=== PATIENT | female | born 1950 | race Caucasian/White ===

== ENCOUNTER 2018-01-18 05:21 | Inpatient (IN) | payer MEDICARE, OTHER, MEDICAID ==
[2018-01-18 05:44] LABS: ADD MAN DIFF? NO
[2018-01-18] MEDS: SOD CHLORIDE 0.9% 500 ML IV (05:44)
[2018-01-18] MEDS: DILTIAZEM 25 MG INJ IV (05:45)
[2018-01-18 05:49] LABS: WHITE BLOOD COUNT 7.4 10^3/ul (4.8-10.8)
[2018-01-18 05:49] LABS: BASOPHILS % 0.5 % (0.0-2.0); EOSINOPHILS # 0.1 10^3/ul (0.0-0.5); EOSINOPHILS % 1.8 % (0.0-7.0); HEMATOCRIT 37.6 % (37.0-47.0); HEMOGLOBIN 12.3 g/dl (12.0-16.0); LYMPHOCYTES % 40.6 % (15.0-51.0); MEAN CORPUSCULAR HEMOGLOBIN 29.4 pg (29.0-33.0); MEAN CORPUSCULAR HGB CONC 32.7 g/dl (32.0-37.0); MEAN CORPUSCULAR VOLUME 89.7 fl (82.0-101.0); MEAN PLATELET VOLUME 10.3 fl (7.4-10.4); MONOCYTE # 0.8 10^3/ul (0.3-0.9); MONOCYTES % 10.5 % (0.0-11.0); NEUTROPHIL # 3.4 10^3/ul (1.6-7.5); NEUTROPHILS % 46.3 % (39.0-77.0); PLATELET COUNT 223 10^3/UL (140-415); RED BLOOD COUNT 4.19 10^6/ul (4.20-5.40); RED CELL DISTRIBUTION WIDTH 12.8 % (11.5-14.5)
[2018-01-18] MEDS ORDERED: ACETAMINOPHEN 325 MG TAB PO (06:30)
[2018-01-18] MEDS ORDERED: BISACODYL (EC) 5 MG TAB PO (06:30)
[2018-01-18] MEDS ORDERED: ONDANSETRON 4 MG INJ IV (06:30)
[2018-01-18] MEDS ORDERED: DOCUSATE SODIUM 100 MG CAP PO (06:30)
[2018-01-18] MEDS ORDERED: NACL 0.9% 3 ML SYG IV (06:30)
[2018-01-18] MEDS ORDERED: morphine 2 MG INJ IV (06:30)
[2018-01-18 06:31] LABS: ANION GAP 9 (8-16); BLOOD UREA NITROGEN 21 mg/dl (7-20); CALCIUM 8.3 mg/dl (8.4-10.2); CARBON DIOXIDE 27 mmol/L (21-31); CHLORIDE 106 mmol/L (97-110); CREATININE 0.95 mg/dl (0.44-1.00); GLUCOSE 129 mg/dl (70-220); POTASSIUM 3.9 mmol/L (3.5-5.1); SODIUM 138 mmol/L (135-144)
[2018-01-18] MEDS: ASPIRIN 325 MG TAB PO (06:32)
[2018-01-18 06:43] LABS: B-TYPE NATRIURETIC PEPTIDE 443 PG/ML (0-125); TROPONIN-I < 0.012 ng/ml (0.000-0.120)
[2018-01-18] MEDS: DILTIAZEM-D5W 125MG/125ML DRIP 125 ML IV (06:50)
[2018-01-18 07:12] LABS: CHOLESTEROL 157 mg/dl (100-200)
[2018-01-18 07:12] LABS: CHOL/HDL RATIO 2.8 RATIO; HDL CHOLESTEROL 55 mg/dl (35-98); LDL CHOLESTEROL,CALCULATED 84 mg/dl; TRIGLYCERIDES 89 mg/dl (0-149)
[2018-01-18 07:22] LABS: HEMOGLOBIN A1C 5.5 % (0-5.9)
[2018-01-18 07:39] LABS: AMPHETAMINE/METHAMPHETAMINE Negative (NEGATIVE); BARBITURATES Negative (NEGATIVE); BENZODIAZEPINES Negative (NEGATIVE); CANNABINOIDS Negative (NEGATIVE); COCAINE Negative (NEGATIVE); OPIATES Negative (NEGATIVE)
[2018-01-18] MEDS: ASPIRIN 81 MG TAB PO ×2 (08:34→08:36)
[2018-01-18 09:00] LABS: INR 0.89; PROTIME 12.1 Sec (11.9-14.9); PT RATIO 0.9
[2018-01-18 09:01] LABS: PARTIAL THROMBOPLASTIN TIME 26.4 Sec (25.0-35.0)
[2018-01-18] MEDS: ASPIRIN (EC) 81 MG TAB PO (09:08)
[2018-01-18] MEDS: METOPROLOL 25 MG TAB PO ×2 (10:30→20:25)
[2018-01-18 11:53] LABS: CREATINE KINASE 97 IU/L (23-200)
[2018-01-18 12:07] LABS: CK INDEX 1.9; TROPONIN-I < 0.012 ng/ml (0.000-0.120)
[2018-01-18] MEDS ORDERED: CEFTRIAXONE 1 GM/50 ML (PMX) 50 ML IVPB (16:30)
[2018-01-18] MEDS ORDERED: hydrALAzine 20 MG INJ IV (16:30)
[2018-01-18] MEDS ORDERED: ACETAMINOPHEN 650 MG SUPP PR (16:30)
[2018-01-18] MEDS ORDERED: DEXTROSE 5%-0.9% NACL 1,000 ML IV (16:30)
[2018-01-18 17:12] LABS: CREATINE KINASE 74 IU/L (23-200)
[2018-01-18 17:21] LABS: CK INDEX 2.3; CK-MB 1.69 ng/ml (0.0-2.4); TROPONIN-I < 0.012 ng/ml (0.000-0.120)
[2018-01-18] MEDS ORDERED: GLUCOSE GEL 15 GRAM TUBE BUCCAL (17:30)
[2018-01-18] MEDS ORDERED: GLUCAGON 1 MG INJ IM (17:30)
[2018-01-18] MEDS ORDERED: DEXTROSE 50% 50 ML SYRINGE IV ×2 (17:30)
[2018-01-18] MEDS ORDERED: GLUCOSE GEL 15 GRAM TUBE PO ×2 (17:30)
[2018-01-18] MEDS ORDERED: INSULIN ASPART [NOVOLOG] 3 ML PEN SC (17:55)
[2018-01-18] MEDS: ZOLPIDEM 5 MG TAB PO (22:40)
[2018-01-18] MEDS: IBUPROFEN 200 MG TAB PO (22:40)
[2018-01-19] MEDS ORDERED: ACCU-CHEK XX (02:00)
[2018-01-19 06:51] LABS: ADD MAN DIFF? NO
[2018-01-19 07:04] LABS: WHITE BLOOD COUNT 6.4 10^3/ul (4.8-10.8)
[2018-01-19 07:04] LABS: BASOPHILS % 0.6 % (0.0-2.0); EOSINOPHILS # 0.2 10^3/ul (0.0-0.5); EOSINOPHILS % 2.5 % (0.0-7.0); HEMATOCRIT 35.8 % (37.0-47.0); HEMOGLOBIN 11.7 g/dl (12.0-16.0); LYMPHOCYTES # 3.2 10^3/ul (0.8-2.9); LYMPHOCYTES % 49.3 % (15.0-51.0); MEAN CORPUSCULAR HEMOGLOBIN 29.2 pg (29.0-33.0); MEAN CORPUSCULAR HGB CONC 32.7 g/dl (32.0-37.0); MEAN CORPUSCULAR VOLUME 89.3 fl (82.0-101.0); MEAN PLATELET VOLUME 10.7 fl (7.4-10.4); MONOCYTE # 0.6 10^3/ul (0.3-0.9); MONOCYTES % 9.2 % (0.0-11.0); NEUTROPHIL # 2.5 10^3/ul (1.6-7.5); NEUTROPHILS % 38.2 % (39.0-77.0); PLATELET COUNT 217 10^3/UL (140-415); RED BLOOD COUNT 4.01 10^6/ul (4.20-5.40); RED CELL DISTRIBUTION WIDTH 12.8 % (11.5-14.5)
[2018-01-19 07:35] LABS: ALANINE AMINOTRANSFERASE 28 IU/L (13-69); ALBUMIN 2.8 g/dl (3.3-4.9); ALBUMIN/GLOBULIN RATIO 1.03; ALKALINE PHOSPHATASE 48 IU/L (42-121); ANION GAP 9 (8-16); ASPARTATE AMINO TRANSFERASE 22 IU/L (15-46); BILIRUBIN,INDIRECT 0.7 mg/dl (0-1.1); BILIRUBIN,TOTAL 0.7 mg/dl (0.2-1.3); BLOOD UREA NITROGEN 17 mg/dl (7-20); CALCIUM 8.7 mg/dl (8.4-10.2); CARBON DIOXIDE 28 mmol/L (21-31); CHLORIDE 108 mmol/L (97-110); CREATININE 0.93 mg/dl (0.44-1.00); GLUCOSE 89 mg/dl (70-220); SODIUM 141 mmol/L (135-144); TOTAL PROTEIN 5.5 g/dl (6.1-8.1)
[2018-01-19] MEDS: METOPROLOL 25 MG TAB PO (08:40)
[2018-01-19] MEDS: ASPIRIN (EC) 81 MG TAB PO (08:40)
[2018-01-19] MEDS ORDERED: ASPIRIN 300 MG SUPP PR (09:00)
[2018-01-19 09:35] LABS: HEMOGLOBIN A1C 5.6 % (0-5.9)
== END 2018-01-19 14:47 | disposition home or self-care (01) | DRG 310 ==
LOC: E/R 05:21 → TEL 06:10
DX: I48.0 Paroxysmal atrial fibrillation (principal); E03.9 Hypothyroidism, unspecified; I10 Essential (primary) hypertension; E78.5 Hyperlipidemia, unspecified; F32.9 Major depressive disorder, single episode, unspecified; R00.1 Bradycardia, unspecified; E66.9 Obesity, unspecified; Z68.34 Body mass index [BMI] 34.0-34.9, adult; Z87.891 Personal history of nicotine dependence; Z79.82 Long term (current) use of aspirin
CPT/HCPCS: 36415; 71045; 80048; 80053; 80061; 80307; 82550; 82553; 83036; 83735; 83880; 84443; 84484; 85025; 85610; 85730; 93005; 93306; 96374; 99291-25

== ENCOUNTER 2018-07-24 21:51 | Emergency (ER) | payer MEDICARE, OTHER ==
[2018-07-24] MEDS: SOD CHLORIDE 0.9% 1,000 ML IV (22:16)
[2018-07-24 22:17] LABS: ADD MAN DIFF? NO
[2018-07-24 22:19] LABS: BASOPHILS % 0.5 % (0.0-2.0); EOSINOPHILS # 0.1 10^3/ul (0.0-0.5); EOSINOPHILS % 0.8 % (0.0-7.0); HEMATOCRIT 39.6 % (37.0-47.0); HEMOGLOBIN 12.9 g/dl (12.0-16.0); LYMPHOCYTES # 2.5 10^3/ul (0.8-2.9); LYMPHOCYTES % 34.1 % (15.0-51.0); MEAN CORPUSCULAR HEMOGLOBIN 28.7 pg (29.0-33.0); MEAN CORPUSCULAR HGB CONC 32.6 g/dl (32.0-37.0); MEAN CORPUSCULAR VOLUME 88.2 fl (82.0-101.0); MEAN PLATELET VOLUME 10.4 fl (7.4-10.4); MONOCYTE # 0.7 10^3/ul (0.3-0.9); MONOCYTES % 9.6 % (0.0-11.0); NEUTROPHIL # 4.1 10^3/ul (1.6-7.5); NEUTROPHILS % 54.7 % (39.0-77.0); PLATELET COUNT 224 10^3/UL (140-415); RED BLOOD COUNT 4.49 10^6/ul (4.20-5.40); RED CELL DISTRIBUTION WIDTH 12.8 % (11.5-14.5)
[2018-07-24 22:19] LABS: WHITE BLOOD COUNT 7.4 10^3/ul (4.8-10.8)
[2018-07-24] MEDS: ASPIRIN 81 MG TAB PO (22:19)
[2018-07-24 22:40] LABS: ANION GAP 6 (5-13); BLOOD UREA NITROGEN 29 mg/dl (7-20); CARBON DIOXIDE 26 mmol/L (21-31); CHLORIDE 104 mmol/L (97-110); CREATININE 1.03 mg/dl (0.44-1.00); Estimated GFR 53 mL/min (>60); GLUCOSE 98 mg/dl (70-220); POTASSIUM 3.8 mmol/L (3.5-5.1); SODIUM 136 mmol/L (135-144)
[2018-07-24 22:51] LABS: TROPONIN-I < 0.012 ng/ml (0.000-0.120)
== END 2018-07-25 00:24 | disposition home or self-care (01) ==
LOC: E/R 07-25 00:24
DX: I48.0 Paroxysmal atrial fibrillation (principal); E86.0 Dehydration; I10 Essential (primary) hypertension; J45.909 Unspecified asthma, uncomplicated; Z79.82 Long term (current) use of aspirin
CPT/HCPCS: 36415; 71045; 80048; 84484; 85025; 93005; 99285-25